=== PATIENT | male | born 1955 | race Caucasian/White ===

== ENCOUNTER 2017-12-16 10:59 | Inpatient (IN) | payer OTHER ==
--- NOTE | 2017-12-16 09:22 | GHP ---
DATE OF ADMISSION: 12/16/2017 DATE OF SURGERY: 12/16/2017. CHIEF COMPLAINT: Right ankle, left knee. HISTORY OF PRESENT ILLNESS: Patient is a 62-year-old who sustained a fall on stairs resulting in lef t knee and right ankle pain. PAST MEDICAL HISTORY: Positive for diabetes, hyper cholesterol, hypertension, cardiac history. MEDICATIONS: Include amlodipine, Aspir-Low, atorvastatin, glipizide, irbesartan, metformin, Pradaxa, and Toprol XL. SOCIAL HISTORY: Positive for being a former smoker. FAMILY HISTORY: Noncontributory. PHYSICAL EXAM: GENERAL APPEARANCE: The patient is alert and oriented x3 in mild distress secondary to his extremity pains. HEENT: Head is normocephalic. Pupils equal, round, reactive to light. Ext raocular eye movements intact. NECK: Supple. No JVD or lymphadenopathy. HEART: Regular rate and rhythm. ABDOMEN: Soft, nontender, nondistended. GENITAL, RECTAL AND BREAST: Deferred. EXTREMITIE S: On the left reveals palpable defect in the distal quad tendon with difficulty extending his knee. On the right he has tenderness along the lateral aspect of his ankle overlying his lateral malleolu s. ASSESSMENT: 1. Left quadriceps tendon tear. 2. Right lateral malleolus fracture. PLAN: The patient is going to undergo ORIF right lateral malleolus fracture and open repair left declan driceps tendon. /[id number]/MODL
[2017-12-16] MEDS ORDERED: ceFAZolin 2 GM/DEXTROSE 100 ML IV ONE (13:00)
[2017-12-16] MEDS ORDERED: LACTULOSE 20 GM/30 ML UDCUP PO PRN (13:01)
[2017-12-16] MEDS ORDERED: MAGNESIUM HYDROXIDE 30 ML UDCUP PO PRN (13:01)
[2017-12-16] MEDS ORDERED: BISACODYL 10 MG SUPP PR PRN (13:01)
[2017-12-16] MEDS ORDERED: PROMETHAZINE HCL 25 MG/ML INJ IVP PRN (13:01)
[2017-12-16] MEDS ORDERED: morphINE PCA 30 MG/30 ML PCA IV PRN (13:01)
[2017-12-16] MEDS ORDERED: NALOXONE HCL 0.4 MG/ML INJ IVP PRN ×2 (13:01→15:36)
[2017-12-16] MEDS ORDERED: ONDANSETRON 4 MG/2 ML VIAL IVP PRN (13:01)
[2017-12-16] MEDS ORDERED: D5W 1/2 NS W/ 20 KCl/L 1,000 ML IV SCH (13:15)
[2017-12-16] MEDS ORDERED: LR 1,000 ML IV ONE (13:18)
[2017-12-16] MEDS ORDERED: LIDOCAINE 1% 2 ML INJ ID PRN (13:18)
--- NOTE | 2017-12-16 13:18 | PDANEPAE ---
ANE Past Medical History - Cardiovascular History Hx Hypertension: Yes Hx Arrhythmias: Yes Hx Chest Pain: No Hx Coronary Artery / Peripheral Vascular Disease: No Hx CHF / Valvular Disease: No Hx Palpitations: Yes Cardiovascular History Comment: Hx of Afib - Pulmonary History Hx COPD: No Hx Asthma/Reactive Airway Disease: No Hx Recent Upper Respiratory Infection: No Hx Oxygen in Use at Home: Yes O2 in Use at Home (L/minute): Pt supposed to use w/Cpap Hx Sleep Apnea: Yes Sleep Apnea Screening Result - Last Documented: Positive Pulmonary History Comment: Does not use O2 and is not sure how many liters he's supposed to use - Neurologic History Hx Cerebrovascular Accident: No Hx Seizures: No Hx Dementia: No - Endocrine History Hx Diabetes: Yes Hypothyroid: No Hyperthyroid: No Obesity: yes, severe - Renal History Hx Renal Disorders: No - Liver History Hx Hepatic Disorders: No - Neurological & Psychiatric Hx Hx Neurological and Psychiatric Disorders: No - Cancer History Hx Cancer: No - Congenital Disorder History Hx Congenital Disorders: No - GI History Hx Gastrointestinal Disorders: No - Other Health History Other Health History: wears glasses. glaucoma - Chronic Pain History Chronic Pain: No - Surgical History Prior Surgeries: rectal cyst removal. tonsillectomy ANE Review of Systems Review of Systems: - Exercise capacity METS (RN): 4 METS ANE Patient History - Allergies Allergies/Adverse Reactions: No Known Allergies Allergy (Verified 12/14/17 16:26) - Home Medications Home Medications: Aspirin [Aspirin 81mg (*)] 81 mg PO DAILY 02/19/14 [Last Taken Unknown] Atorvastatin Calcium [Lipitor 20 mg (*)] 20 mg PO DAILY 02/19/14 [Last Taken Unknown] Dabigatran Etexilate Mesyl [Pradaxa 150 MG (*)] 150 mg PO BID 02/19/14 [Last Taken 12/12/17 19:00] Dorzolamide HCl/Timolol Maleat [Dorzolamide-Timolol Eye Drops] 1 ml EACHEYE BID 02/19/14 [Last Taken Unknown] Metformin HCl [Metformin 1000 mg] 1,000 mg PO BIDMEAL 02/19/14 [Last Taken Unknown] Metoprolol Succinate 50 mg PO BID 02/19/14 [Last Taken Unknown] Irbesartan/Hydrochlorothiazide [Irbesartan-Hctz 150-12.5 mg Tb] 2 each PO DAILY 12/13/17 [Last Taken Unknown] Latanoprostene Bunod [Vyzulta] 1 drop EACHEYE HS 12/13/17 [Last Taken Unknown] amLODIPine BESYLATE [Norvasc 2.5 mg (*)] 2.5 mg PO DAILY 12/13/17 [Last Taken Unknown] glipiZIDE [Glipizide] 5 mg PO DAILY 12/13/17 [Last Taken Unknown] - Smoking Hx Smoking Status: Former smoker - Family Anes Hx Family Hx Anesthesia Complications: none ANE Labs/Vital Signs - Vital Signs Height: 180.34 cm Weight: 136.078 kg ANE Physical Exam - ASA Status ASA Status: III ANE Anesthesia Plan Anesthesia Plan: general endotracheal anesthesia Total IV Anesthesia: No
--- NOTE | 2017-12-16 13:19 | POSTOPPROG ---
Post Op Note Date of Operation: 12/16/17 Surgeon: Cal Lucia Anesthesia: GET(General Endotracheal) Pre-op Diagnosis: R lat malleolus fx, L quad tendon rupture Post-op Diagnosis: same Procedure: ORIF R lat malleolus, L quad tendon repair Inf/Abcess present in the surg proc area at time of surgery?: No EBL: 50-100
[2017-12-16] MEDS ORDERED: MIDAZOLAM 2 MG/2 ML VIAL ONE (13:28)
[2017-12-16] MEDS ORDERED: PROPOFOL 200 MG/20 ML VIAL ONE (13:36)
[2017-12-16] MEDS ORDERED: KETOROLAC 30 MG/1 ML SDV ONE (13:36)
[2017-12-16] MEDS ORDERED: fentaNYL 250 MCG/5 ML INJ ONE (13:36)
[2017-12-16] MEDS ORDERED: LIDOCAINE 2% 100 MG/5 ML SYR ONE (13:36)
[2017-12-16] MEDS ORDERED: DEXAMETHASONE 4 MG/ML VIAL ONE (13:36)
[2017-12-16] MEDS ORDERED: ONDANSETRON 4 MG/2 ML VIAL ONE (13:36)
--- NOTE | 2017-12-16 14:31 | PDANEPAE ---
ANE History of Present Illness R quadriceps tendon rupture and right ankle fracture, here for tendon repair and ORIF ANE Past Medical History - Cardiovascular History Hx Hypertension: Yes Hx Arrhythmias: Yes Hx Chest Pain: No Hx Coronary Artery / Peripheral Vascular Disease: No Hx CHF / Valvular Disease: No Hx Palpitations: Yes Cardiovascular History Comment: Hx of Afib - Pulmonary History Hx COPD: No Hx Asthma/Reactive Airway Disease: No Hx Recent Upper Respiratory Infection: No Hx Oxygen in Use at Home: Yes O2 in Use at Home (L/minute): Pt supposed to use w/Cpap Hx Sleep Apnea: Yes Sleep Apnea Screening Result - Last Documented: Positive Pulmonary History Comment: Does not use O2 and is not sure how many liters he's supposed to use - Neurologic History Hx Cerebrovascular Accident: No Hx Seizures: No Hx Dementia: No - Endocrine History Hx Diabetes: Yes Hypothyroid: No Hyperthyroid: No Obesity: yes, severe - Renal History Hx Renal Disorders: No - Liver History Hx Hepatic Disorders: No - Neurological & Psychiatric Hx Hx Neurological and Psychiatric Disorders: No - Cancer History Hx Cancer: No - Congenital Disorder History Hx Congenital Disorders: No - GI History Hx Gastrointestinal Disorders: No - Other Health History Other Health History: wears glasses. glaucoma - Chronic Pain History Chronic Pain: No - Surgical History Prior Surgeries: rectal cyst removal. tonsillectomy ANE Review of Systems Review of Systems: - Exercise capacity METS (RN): 4 METS ANE Patient History - Allergies Allergies/Adverse Reactions: No Known Allergies Allergy (Verified 12/14/17 16:26) - Home Medications Home Medications: Aspirin [Aspirin 81mg (*)] 81 mg PO DAILY 02/19/14 [Last Taken Unknown] Atorvastatin Calcium [Lipitor 20 mg (*)] 20 mg PO DAILY 02/19/14 [Last Taken Unknown] Dabigatran Etexilate Mesyl [Pradaxa 150 MG (*)] 150 mg PO BID 02/19/14 [Last Taken 12/12/17 19:00] Dorzolamide HCl/Timolol Maleat [Dorzolamide-Timolol Eye Drops] 1 ml EACHEYE BID 02/19/14 [Last Taken Unknown] Metformin HCl [Metformin 1000 mg] 1,000 mg PO BIDMEAL 02/19/14 [Last Taken Unknown] Metoprolol Succinate 50 mg PO BID 02/19/14 [Last Taken Unknown] Irbesartan/Hydrochlorothiazide [Irbesartan-Hctz 150-12.5 mg Tb] 2 each PO DAILY 12/13/17 [Last Taken Unknown] Latanoprostene Bunod [Vyzulta] 1 drop EACHEYE HS 12/13/17 [Last Taken Unknown] amLODIPine BESYLATE [Norvasc 2.5 mg (*)] 2.5 mg PO DAILY 12/13/17 [Last Taken Unknown] glipiZIDE [Glipizide] 5 mg PO DAILY 12/13/17 [Last Taken Unknown] - NPO status NPO Since - Liquids (Date): 12/15/17 NPO Since - Liquids (Time): 22:00 NPO Since - Solids (Date): 12/15/17 NPO Since - Solids (Time): 20:00 - Smoking Hx Smoking Status: Former smoker - Family Anes Hx Family Hx Anesthesia Complications: none ANE Labs/Vital Signs - Vital Signs Blood Pressure: 169/97 Heart Rate: 110 Respiratory Rate: 20 O2 Sat (%): 96 Height: 180.34 cm Weight: 136.078 kg ANE Physical Exam - Airway Neck exam: increased neck circumference, short neck Mallampati Score: Class 4 Mouth exam: normal dental/mouth exam - Pulmonary Pulmonary: no respiratory distress - Cardiovascular Cardiovascular: irregularly irregular - ASA Status ASA Status: III ANE Anesthesia Plan Anesthesia Plan: general endotracheal anesthesia
[2017-12-16] MEDS ORDERED: HYDROmorphONE/DILAUDID 2 MG/ML INJ ONE ×2 (14:46→15:40)
[2017-12-16] MEDS ORDERED: ROCURONIUM 50 MG/5 ML VIAL ONE (14:46)
[2017-12-16] MEDS ORDERED: SUGAMMADEX SODIUM 200 MG/2 ML VIAL IVP ONE (14:46)
[2017-12-16] MEDS ORDERED: GLYCOPYRROLATE 0.2 MG/1 ML VIAL ONE (14:46)
[2017-12-16] MEDS ORDERED: PHENYLEPHRINE 0.5% NASAL 15 ML SPRAY ONE (14:46)
--- NOTE | 2017-12-16 15:26 | PDMN ---
Medical Necessity Medical necessity: Pt meets inpt criteria per MD order and MCG S-100, Ankle Fracture, Closed, Open Reduction, Internal Fixation (ORIF). 62 y/o who sustained fall on stairs resulting in L quadriceps tendon tare and R lateral malleolus fracture, admitted for surg intervention for both injuries: ORIF R lat malleolus and open repair of L quadriceps tendon. PMH includes diabetes, HTN , cardiac hx. Anticipate>2MN for likely ext recovery given two injuries/ surgeries.
[2017-12-16] MEDS ORDERED: LR 500 ML IV PRN (15:36)
[2017-12-16] MEDS ORDERED: LABETALOL HCL 5 MG/ML 20 ML MDV IVP PRN (15:36)
[2017-12-16] MEDS ORDERED: ALBUTEROL 3 ML DEYVIAL IH PRN (15:36)
[2017-12-16] MEDS ORDERED: fentaNYL 100 MCG/2 ML INJ ONE (15:40)
[2017-12-16] MEDS: fentaNYL 100 MCG/2 ML INJ IVP PRN ×2 (15:46→16:05)
[2017-12-16] MEDS: HYDROmorphONE/DILAUDID 2 MG/ML INJ IVP PRN ×3 (15:47→16:33)
--- NOTE | 2017-12-16 16:15 | POSTANESTH ---
Post Anesthetic Evaluation Cardiovascular Status: Normal, Stable Respiratory Status: Normal, Stable Level of Consciousness/Mental Status: Can Participate in Eval Pain Control: Adequate, Prn Tx Ordered Nausea/Vomiting Control: Adequate, Prn Tx Ordered Complications Possibly Related to Anesthesia: None Noted (Still in Afib, rate controlled. MS at baseline. Met all criteria for DC to floor)
[2017-12-16] MEDS: oxyCODONE IR 5 MG TAB PO PRN (17:04)
[2017-12-16] MEDS ORDERED: NON-FORMULARY NEW DRUG (Metformin Hcl [Metformin 1000 Mg] 1,000 MG) PO SCH (18:00)
[2017-12-16] MEDS: metFORMIN HCL 500 MG TAB PO SCH (18:23)
[2017-12-16] MEDS: DABIGATRAN ETEXILATE MESYL 150 MG CAP PO SCH (20:01)
[2017-12-16] MEDS: SENNOSIDES/DOCUSATE SODIUM TAB PO SCH (20:01)
[2017-12-16] MEDS: METOPROLOL SUCCINATE XR 50 MG TAB PO SCH (20:01)
[2017-12-16] MEDS: DORZOLAMIDE/TIMOLOL 10 ML OPHT.BTL EACHEYE SCH (20:05)
[2017-12-16] MEDS: ceFAZolin 2 GM/DEXTROSE 100 ML IV SCH (22:56)
[2017-12-17] MEDS: oxyCODONE IR 5 MG TAB PO PRN ×4 (03:10→20:32)
[2017-12-17] MEDS: ceFAZolin 2 GM/DEXTROSE 100 ML IV SCH (05:14)
[2017-12-17] MEDS: HYDROCHLOROTHIAZIDE 25 MG TAB PO SCH (07:46)
[2017-12-17] MEDS: metFORMIN HCL 500 MG TAB PO SCH ×2 (07:46→18:16)
[2017-12-17] MEDS: ASPIRIN 81 MG CHEWABLE TAB PO SCH (07:47)
[2017-12-17] MEDS: IRBESARTAN 150 MG TAB PO SCH (07:47)
[2017-12-17] MEDS: DABIGATRAN ETEXILATE MESYL 150 MG CAP PO SCH ×2 (07:48→20:17)
[2017-12-17] MEDS: SENNOSIDES/DOCUSATE SODIUM TAB PO SCH ×2 (07:49→20:19)
[2017-12-17] MEDS: METOPROLOL SUCCINATE XR 50 MG TAB PO SCH ×2 (07:50→20:19)
[2017-12-17] MEDS: glipiZIDE 5 MG TAB PO SCH (07:50)
[2017-12-17] MEDS: ATORVASTATIN CALCIUM 20 MG TAB PO SCH (07:51)
[2017-12-17] MEDS: POLYETHYLENE GLYCOL 3350 17 GM PKT PO PRN (07:51)
[2017-12-17] MEDS: DORZOLAMIDE/TIMOLOL 10 ML OPHT.BTL EACHEYE SCH ×2 (11:54→20:17)
--- NOTE | 2017-12-17 12:11 | ASMTCMCOM ---
CM Note CM Note Notes: Chart reviewed. 62 year old male normally lives independent. S/P fall and resultant fracture of right anle and torn left quadriceps muscle. Underwent surgical repair. PT and OT pending. Needs to be determined. CM to follow. Plan: TBD Date Signed: 12/17/2017 12:11 PM Electronically Signed By:Carmen Ramos RN
[2017-12-17] MEDS: DIAZEPAM 5 MG TAB PO PRN ×2 (12:53→20:32)
--- NOTE | 2017-12-17 14:16 | SOAPPROG ---
SOAP Progress Note Assessment/Plan: Assessment: L quad tendon rupture (s/p repair) R lat malleolus fx (s/p ORIF) In chair Pain tolerable on po Brittney diet + U/O L knee dressing intact, No D/C Distal NVI R ankle dressing intact, No D/C Toes with good cap refill, + sensation Plan: OOB, PT SNF transfer pending d/t BL injuries and inability to manage at home 12/17/17 14:13 Objective: Vital Signs Temp Pulse Resp BP Pulse Ox 36.8 C 97 16 111/71 92 12/17/17 07:35 12/17/17 12:57 12/17/17 12:57 12/17/17 12:57 12/17/17 12:57 12/16/17 12/17/17 12/18/17 05:59 05:59 05:59 Intake Total 825 Output Total 575 Balance 250 ICD10 Worksheet Patient Problems: Problems Problem Status Onset Quadriceps tendon rupture Acute - ICD10 Problem Qualifiers (1) Quadriceps tendon rupture
--- NOTE | 2017-12-17 15:23 | ASMTCMCOM ---
CM Note CM Note Notes: Per PT and OT as well as physician, rehab recommended at discharge. to look at [facility] as well as [place]. Referrals via allscripts. plan: To [facility] when medically cleared for discharge. Date Signed: 12/17/2017 03:22 PM Electronically Signed By:Carmen Ramos RN
[2017-12-18] MEDS: oxyCODONE IR 5 MG TAB PO PRN ×5 (01:31→21:20)
[2017-12-18] MEDS: SENNOSIDES/DOCUSATE SODIUM TAB PO SCH ×2 (08:30→21:20)
[2017-12-18] MEDS: DIAZEPAM 5 MG TAB PO PRN ×2 (08:30→14:54)
[2017-12-18] MEDS: metFORMIN HCL 500 MG TAB PO SCH ×2 (08:30→17:00)
[2017-12-18] MEDS: ATORVASTATIN CALCIUM 20 MG TAB PO SCH (08:31)
[2017-12-18] MEDS: METOPROLOL SUCCINATE XR 50 MG TAB PO SCH ×2 (08:31→21:18)
[2017-12-18] MEDS: IRBESARTAN 150 MG TAB PO SCH (08:31)
[2017-12-18] MEDS: DABIGATRAN ETEXILATE MESYL 150 MG CAP PO SCH ×2 (08:32→21:18)
[2017-12-18] MEDS: DORZOLAMIDE/TIMOLOL 10 ML OPHT.BTL EACHEYE SCH ×2 (08:32→21:23)
[2017-12-18] MEDS: HYDROCHLOROTHIAZIDE 25 MG TAB PO SCH (08:32)
[2017-12-18] MEDS: glipiZIDE 5 MG TAB PO SCH (08:32)
[2017-12-18] MEDS: ASPIRIN 81 MG CHEWABLE TAB PO SCH (08:32)
--- NOTE | 2017-12-18 11:47 | SOAPPROG ---
SOAP Progress Note Assessment/Plan: Assessment: L quad tendon rupture (s/p repair) R lat malleolus fx (s/p ORIF) In chair Pain tolerable on po Brittney diet + U/O L knee dressing intact, No D/C Distal NVI R ankle dressing intact, No D/C Toes with good cap refill, + sensation Plan: OOB, PT SNF transfer pending d/t BL injuries and inability to manage at home 12/17/17 14:13 12/18/17 11:45 Up in chair for extended period yesterday with some increase in pain Comfortable now Dressings intact, no D/CNV Unchanged Con't OOB/PT SNF possible tomorrow Objective: Vital Signs Temp Pulse Resp BP Pulse Ox 36.8 C 106 H 18 91/63 L 97 12/18/17 11:26 12/18/17 11:26 12/18/17 11:26 12/18/17 11:26 12/18/17 11:26 12/17/17 12/18/17 12/19/17 05:59 05:59 05:59 Intake Total 825 650 Output Total 571 9600 Balance 250 -900 ICD10 Worksheet Patient Problems: Problems Problem Status Onset Quadriceps tendon rupture Acute - ICD10 Problem Qualifiers (1) Quadriceps tendon rupture
--- NOTE | 2017-12-18 11:50 | PDIAF ---
- Diagnosis Code Status: Full Code - Medication Management Discharge Medications: Medications to Continue on Transfer Aspirin [Aspirin 81mg (*)] 81 mg PO DAILY 02/19/14 [Last Taken Unknown] Atorvastatin Calcium [Lipitor 20 mg (*)] 20 mg PO DAILY 02/19/14 [Last Taken Unknown] Dabigatran Etexilate Mesyl [Pradaxa 150 MG (*)] 150 mg PO BID 02/19/14 [Last Taken 12/12/17 19:00] Dorzolamide HCl/Timolol Maleat [Dorzolamide-Timolol Eye Drops] 1 ml EACHEYE BID 02/19/14 [Last Taken Unknown] Metformin HCl [Metformin 1000 mg] 1,000 mg PO BIDMEAL 02/19/14 [Last Taken Unknown] Metoprolol Succinate 50 mg PO BID 02/19/14 [Last Taken Unknown] Irbesartan/Hydrochlorothiazide [Irbesartan-Hctz 150-12.5 mg Tb] 2 each PO DAILY 12/13/17 [Last Taken Unknown] Latanoprostene Bunod [Vyzulta] 1 drop EACHEYE HS 12/13/17 [Last Taken Unknown] amLODIPine BESYLATE [Norvasc 2.5 mg (*)] 2.5 mg PO DAILY 12/13/17 [Last Taken Unknown] glipiZIDE [Glipizide] 5 mg PO DAILY 12/13/17 [Last Taken Unknown] Additional Medication Instructions: F/U Dr. Lucia Tuesday12/26/17 or Tue Discharge Medications: Refer to the Discharge Home Medication list for PRN reason. - Orders Services needed: Physical Therapy, Occupational Therapy Diet Recommendation: no restrictions on diet Wound Care Instructions: Keep dressings clean, dry, intact Sutures/Decorah Site: L knee, right ankle Activity/Weight Bearing Restrictions: WBAT L leg in knee immobilizer, Touch down WB on Right in boot - Follow Up Care Current Providers and Referrals: Anastasiya Jara MD [Primary Care Provider] - Cal Lucia MD [Medical Doctor] -
--- NOTE | 2017-12-18 15:03 | ASMTCMCOM ---
CM Note CM Note Notes: Patient's interested in patient going to [facility]. Faxed [facility] updated pt info incl-therapy evals. Date Signed: 12/18/2017 03:03 PM Electronically Signed By:Vita Ospina LCSW
[2017-12-18] MEDS: FAMOTIDINE 20 MG TAB PO SCH (21:20)
[2017-12-19] MEDS: oxyCODONE IR 5 MG TAB PO PRN ×3 (05:52→14:57)
--- NOTE | 2017-12-19 06:00 | SOAPPROG ---
SOAP Progress Note Assessment/Plan: Assessment: L quad tendon rupture (s/p repair) R lat malleolus fx (s/p ORIF) In chair Pain tolerable on po Brittney diet + U/O L knee dressing intact, No D/C Distal NVI R ankle dressing intact, No D/C Toes with good cap refill, + sensation Plan: OOB, PT SNF transfer pending d/t BL injuries and inability to manage at home 12/17/17 14:13 12/18/17 11:45 Up in chair for extended period yesterday with some increase in pain Comfortable now Dressings intact, no D/CNV Unchanged Con't OOB/PT SNF possible tomorrow 12/19/17 05:55 Pain con't to be tolerable Gradual progression with PT Dressings intact NV Unchanged Plan: Probable SNF placement today Objective: Vital Signs Temp Pulse Resp BP Pulse Ox 36.5 C 103 H 16 134/90 H 95 12/19/17 04:00 12/19/17 04:00 12/19/17 04:00 12/19/17 04:00 12/19/17 04:00 12/17/17 12/18/17 12/19/17 05:59 05:59 05:59 Intake Total 824 653 900 Output Total 490 5775 2524 Balance 743 -563 -103 ICD10 Worksheet Patient Problems: Problems Problem Status Onset Quadriceps tendon rupture Acute - ICD10 Problem Qualifiers (1) Quadriceps tendon rupture
[2017-12-19] MEDS: POLYETHYLENE GLYCOL 3350 17 GM PKT PO PRN (08:41)
[2017-12-19] MEDS: glipiZIDE 5 MG TAB PO SCH (08:42)
[2017-12-19] MEDS: DABIGATRAN ETEXILATE MESYL 150 MG CAP PO SCH (08:42)
[2017-12-19] MEDS: ATORVASTATIN CALCIUM 20 MG TAB PO SCH (08:42)
[2017-12-19] MEDS: SENNOSIDES/DOCUSATE SODIUM TAB PO SCH (08:42)
[2017-12-19] MEDS: ASPIRIN 81 MG CHEWABLE TAB PO SCH (08:42)
[2017-12-19] MEDS: metFORMIN HCL 500 MG TAB PO SCH (08:42)
[2017-12-19] MEDS: DORZOLAMIDE/TIMOLOL 10 ML OPHT.BTL EACHEYE SCH (08:43)
[2017-12-19] MEDS: FAMOTIDINE 20 MG TAB PO SCH (08:43)
[2017-12-19] MEDS: IRBESARTAN 150 MG TAB PO SCH (10:21)
[2017-12-19] MEDS: METOPROLOL SUCCINATE XR 50 MG TAB PO SCH (10:21)
[2017-12-19] MEDS: HYDROCHLOROTHIAZIDE 25 MG TAB PO SCH (10:21)
--- NOTE | 2017-12-19 10:53 | GOP ---
DATE OF OPERATION: 12/16/2017 SURGEON: Cal Lucia MD ANESTHESIA: General. PREOPERATIVE DIAGNOSIS: 1. Left quadriceps tendon rupture. 2. Right lateral malleolus fracture. POSTOPERATIVE DIAGNOSIS: 1. Left quadriceps tendon rupture. 2. Right lateral malleolus fracture. PROCEDURE PERFORMED: 1. Open repair left quadriceps tendon rupture. 2. Open reduction, internal fixation right lateral malleolus fracture. FINDINGS: ESTIMATED BLOOD LOSS: Minimal. INDICATIONS: The patient is a 62-year-old who sustained a fall resulting in bilateral lower extremit y injuries. Based on the nature of the injury, it was recommended that operative treatment consistin g of open repair of his quad tendon rupture and open reduction, internal fixation of his lateral mall eolus fracture, be pursued. The patient acknowledged he understood the potential risks of the operat ion including, but not limited to bleeding, infection, neurovascular damage, limb loss, limited limb function, malunion, nonunion, need for hardware removal, re-rupture of the tendon or tendon dysfuncti on despite repair and anesthetic risks. He acknowledged he understood the potential risks, planned p rocedure, and postoperative plan well, and had all questions answered prior to surgery. He gave cons ent to the operative procedure. DESCRIPTION OF PROCEDURE: Patient brought to the operating room after IV antibiotics were administer ed. He was placed in a supine position where general anesthetic was administered. Attention was ini tially directed toward the left. A tourniquet was placed on the left thigh, and left lower extremity was prepped and draped in standard sterile fashion. After marking the incision with Tito wrap exsang uination, tourniquet was inflated to 250. Longitudinal incision was made along the anterior aspect o f the knee, extending from the proximal pole of the patella proximally. Skin and subcutaneous tissue were sharply incised. The retinaculum overlying the patellar tendon was mostly disrupted, but was o pened some to allow for adequate access to the tendon. As anticipated, complete disruption near the patellar insertion was noted with typical "mop handle ends." Two 2.9 mm JuggerKnot hole suture anchors were placed in the patella each gaining excellent purchase. The double stranded suture ends were then placed through the patellar tendon in 2 rows utilizing a Krackow type stitch. The suture ends were tightened. The knee was bent to 90 degrees and the repair was found to be solid with no evidence of suture or anchor pullout. Attention was directed toward closure. The retinaculum was closed with 2-0 Vicryl suture in interrup thuy fashion. Subcutaneous tissue closed with 3-0 Vicryl suture in interrupted fashion. Skin closed with skin arnol. The wounds were dressed with sterile Adaptic, 4 x 4, Kerlix and an Tito wrap. Charlie ping the back table sterile the right lower extremity was then re-prepped and draped in standard ster ile fashion after bumping up the right hip. A calf tourniquet had been placed prior to redraping. A fter marking the incision Tito wrap exsanguination, tourniquet was inflated to 250. A longitudinal incision was made along the posterior border of the distal fibula. Skin and subcutane ous tissue were sharply incised. Sharp dissection was carried anterior to the peroneal tendons expos ing the posterolateral border of the fibula. Limited periosteal reflection was performed. A dental pick was utilized to free out interpose fibrous tissue at the fracture site. Based on the nature of the fracture pattern, a posterior "antiglide" plating was performed. A 6 hole, 1/3 tubular plate was malleted flat at its distal-most aspect. Just proximal to the fracture, a 3.5 mm bicorti lynne screw was placed in a posterior to anterior direction through the plate. As the screw was tighte stiven, the fracture reduction was fine-tuned into an anatomic position with a dental pick. With the fr acture in the anatomically reduced position, a 2.7 mm cortical screw was placed in a posterior to ant erior direction through the plate across the fracture. A supplemental 3.5 mm bicortical screw was pl aced in the most proximal hole in the plate. Fluoroscopic views confirmed anatomic reduction and favorable hardware placement. The fascia overlyi ng the peroneal tendon was closed with 2-0 Vicryl suture in interrupted fashion, subcutaneous tissue closed with 3-0 Vicryl suture in interrupted fashion, skin closed with 4-0 nylon interrupted sutures. 0.5% Marcaine without epinephrine was injected in the wound sites. The wounds were dressed with st erile Adaptic, 4 x 4, Kerlix, and Tito wrap. The patient was placed in a fracture boot on the right. The patient tolerated the procedure well, was taken to the recovery room, extubated in stable condit ion postoperatively. All sponge, needle, and instrument counts were reported as being correct. DRAINS: None. COMPLICATIONS: None. PLAN: The patient will be admitted for medical management and rehab efforts. He would be weightbear ing as tolerated in a knee immobilizer on the left and touchdown weightbearing on the right. /[id number]/MODL
[2017-12-19 12:02] VITALS: BP 113/80
--- NOTE | 2017-12-19 13:57 | ASMTDCNOTE ---
Case Management Discharge Discharge Order Complete? Answers: Yes Patient to Obtain Answers: Other Notes: [facility] Transportation Arranged Answers: [facility] will Pick (Date 12/19/2017 03:30 PM & Time) Case Management Transport Answers: Yes Form Complete Faxed Final Orders Answers: Yes Family Notified Answers: Yes Discharge Comments Notes: Per insurance requirements, patient not able to go to [facility]. He selected [facility], and they accepted. Johanna from arranged transport. BETHEL Schrader to call report. Date Signed: 12/19/2017 01:56 PM Electronically Signed By:Mylene Henning RN
--- NOTE | 2017-12-20 10:01 | ASDISCHSUM ---
Discharge Information Plan Status:SNF Medically Cleared to Leave: Discharge Date:12/19/2017 04:09 PM CM D/C Disposition:[facility] Facility ADT D/C Disposition:[facility] Facility Projected Discharge Date:12/19/2017 11:00 AM Transportation at D/C: Discharge Delay Reason: Follow-Up Date:12/19/2017 11:00 AM Discharge Slot: Final Diagnosis:L quad tendon rupture, R lat malleolus fx Placement Information Referral Type:*Long-Term/SNF Referral ID:[facility]-[id number] Provider Name:Erica Verdin Address 1:[address] Phone Number: Address 2: Fax Number: City:[place] Selection Factors: State:[place] Patient Contact Information Contact Name:DANI Relationship: Address:[address] City:[place] Alternate Phone: State/Zip Code:[place] [address] Email: Financial Information Financial Class:[employer] Primary Plan Desc:TEMI CASIANO Primary Plan Number:[id number] Secondary Plan Desc: Secondary Plan Number: Assessment Information [facility] CM Progress Note CM Note CM Note Notes: Chart reviewed. 62 year old male normally lives independent. S/P fall and resultant fracture of right anle and torn left quadriceps muscle. Underwent surgical repair. PT and OT pending. Needs to be determined. CM to follow. Plan: TBD Date Signed: 12/17/2017 12:11 PM Electronically Signed By:Carmen Ramos RN [facility] CM Progress Note CM Note CM Note Notes: Per PT and OT as well as physician, rehab recommended at discharge. to look at [facility] as well as [place]. Referrals via allscripts. plan: To [facility] when medically cleared for discharge. Date Signed: 12/17/2017 03:22 PM Electronically Signed By:Carmen Ramos RN [facility] CM Progress Note CM Note CM Note Notes: Patient's interested in patient going to [facility]. Faxed [facility] updated pt info incl-therapy evals. Date Signed: 12/18/2017 03:03 PM Electronically Signed By:Vita Ospina LCSW Case Management Discharge Plan Note Case Management Discharge Discharge Order Complete? Answers: Yes Patient to Obtain Answers: Other Notes: [facility] Transportation Arranged Answers: [facility] will Pick (Date 12/19/2017 03:30 PM & Time) Case Management Transport Answers: Yes Form Complete Faxed Final Orders Answers: Yes Family Notified Answers: Yes Discharge Comments Notes: Per insurance requirements, patient not able to go to [facility]. He selected [facility], and they accepted. Johanna from arranged transport. BETHEL Schrader to call report. Date Signed: 12/19/2017 01:56 PM Electronically Signed By:Mylene Henning RN Intervention Information
== END 2017-12-19 16:09 | DRG 493 ==
LOC: F3N 12:58
PROVIDERS: ADMIT Orthopaedic Surgery Foot and Ankle Surgery; ATTEND Orthopaedic Surgery Foot and Ankle Surgery
PROC: 0LQK0ZZ Repair Left Hip Tendon, Open Approach (ICD-10-PCS; principal; 2017-12-16 14:45)
PROC: 0QSJ04Z Reposition Right Fibula with Internal Fixation Device, Open Approach (ICD-10-PCS; principal; 2017-12-16 14:45)
DX: S82.61XA Displaced fracture of lateral malleolus of right fibula, initial encounter for closed fracture (principal); Z68.41 Body mass index [BMI] 40.0-44.9, adult; S76.012A Strain of muscle, fascia and tendon of left hip, initial encounter; W10.8XXA Fall (on) (from) other stairs and steps, initial encounter; I48.91 Unspecified atrial fibrillation; I10 Essential (primary) hypertension; E11.9 Type 2 diabetes mellitus without complications; E78.5 Hyperlipidemia, unspecified; G47.33 Obstructive sleep apnea (adult) (pediatric)
CPT/HCPCS: 97116-GP; 97162-GP; 97166-GO; 97530-GP; 97535-GO; C1713; J0690; J1100; J1170; J1885; J2001; J2250; J2405; J2704; J3010

== ENCOUNTER 2018-07-16 15:14 | Inpatient (IN) | payer OTHER ==
--- NOTE | 2018-07-16 15:42 | EDPHY ---
H & P Stated Complaint: [facility] fall, R knee injury Time Seen by Provider: 07/16/18 15:15 HPI/ROS: CHIEF COMPLAINT: Right knee pain after fall HISTORY OF PRESENT ILLNESS: This is a 62-year-old male who suffered a right lateral malleolus fracture and a left quadriceps tendon rupture after a fall in November of 2017. Both of these were repaired by Dr. Lucia. The patient then sent bent several weeks in a rehab facility. He is now able to walk independently except for long distances, for which she uses a cane. He comes in by ambulance today after falling in his office. He is not certain what happened, does not recall any preceding lightheadedness, chest pain, or other problems. He states that he merely turned and then found himself on the floor. He landed on his right leg, primarily on the lateral knee. He very quickly developed swelling of this knee. He has pain of the distal right thigh. He denies other injuries. He did not strike his head. REVIEW OF SYSTEMS: A ten system review of systems was performed and is negative with the exception of the items mentioned in the HPI. Past medical history: 1. Atrial fibrillation on Pradaxa 2. Hypertension 3. NIDDM 4. Hyperlipidemia 5. Glaucoma 6. 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 He lives with his in [place]. He does not use tobacco products. General Appearance: Alert. Vital signs reviewed. Initial blood pressure 168/ 112, heart rate 115. Head: Normocephalic atraumatic. Eyes: Pupils equal and round, no conjunctival injection, no discharge. Anicteric. Neck: Nontender to palpation over the cervical spine in the midline. Respiratory: Lungs are clear to auscultation; no wheezes, rales, or rhonchi. Cardiovascular: Regular rate and rhythm; no murmur, rub, or gallop. Gastrointestinal: Abdomen is soft and nontender. Skin: Warm and dry, no rashes on exposed skin, normal color. Back: Nontender to palpation over the thoracolumbar spine. No CVAT. Extremities: Right knee suprapatellar effusion. There is a small abrasion on the lateral right knee. He is able to flex his right knee approximately 30 degrees. He is having difficulty lifting his right foot off of the bed. Neurological: Alert and oriented. Moving all four extremities easily and equally. Sensation intact to light touch over both lower extremities. Pulses: 2+ right dorsalis pedis pulse. Psychiatric: Anxious and concerned about this injury. No agitation. - Personal History Current Tetanus/Diphtheria Vaccine: Yes Current Tetanus Diphtheria and Acellular Pertussis (TDAP): Yes - Medical/Surgical History Hx Asthma: No Hx Chronic Respiratory Disease: No Hx Diabetes: Yes Hx Cardiac Disease: Yes Hx Renal Disease: No Hx Cirrhosis: No Hx Alcoholism: No Hx HIV/AIDS: No Hx Splenectomy or Spleen Trauma: No Other PMH: HTN, AFIB, DMII, Sleep Apnea, L knee surgery - Social History Smoking Status: Never smoked Constitutional: Initial Vital Signs Temperature (C) 36.8 C 07/16/18 15:26 Heart Rate 115 H 07/16/18 15:26 Respiratory Rate 16 07/16/18 15:26 Blood Pressure 168/112 H 07/16/18 15:26 O2 Sat (%) 97 07/16/18 15:26 O2 Delivery Mode Room Air Allergies/Adverse Reactions: No Known Allergies Allergy (Verified 07/16/18 15:25) Home Medications: Medication Instructions Recorded Aspirin [Aspirin 81mg (*)] 81 mg PO DAILY 02/19/14 Atorvastatin Calcium [Lipitor 20 20 mg PO DAILY 02/19/14 mg (*)] Dabigatran Etexilate Mesyl 150 mg PO BID 02/19/14 [Pradaxa 150 MG (*)] Metformin HCl [Metformin 1000 mg] 1,000 mg PO BIDMEAL 02/19/14 Metoprolol Succinate 50 mg PO BID 02/19/14 Irbesartan/Hydrochlorothiazide 2 each PO DAILY 12/13/17 [Irbesartan-Hctz 150-12.5 mg Tb] Latanoprostene Bunod [Vyzulta] 1 drop EACHEYE HS 12/13/17 glipiZIDE [Glipizide] 5 mg PO DAILY 12/13/17 Unknown Eye Drop 1 drop EACHEYE BID 07/16/18 amLODIPine BESYLATE [Norvasc 5 mg 5 mg PO HS 07/16/18 (*)] Medical Decision Making - Diagnostics Imaging Results: Imaging Impressions Knee X-Ray 07/16/18 15:35 Impression: 1. Findings compatible with right quadriceps tendon tear as well as a avulsion fracture fragment superior to the patella and patella baja. ED Course/Re-evaluation: 62-year-old male with right knee injury. Four view knee x-ray is suggestive of right quadriceps tendon tear with patella baja and what appears to be an avulsion fracture. I have spoken with CHRIS Goss for Dr. Lucia. Dr. Lucia repaired the patient's quadriceps rupture and ankle fracture in 2018. It is recommended that the patient be placed in a straight leg immobilizer and crutch walk. Dr. Lucia can see him in the office in the morning. Unfortunately, this patient was Unable to safely ambulate with an immobilizer and crutches. His left leg does not have the strength to fully support him. I spoke again with Dr. Lucia'sPA. It is agreed that the patient will be admitted to the hospital and operative planning will be carried out by the Orthopedics team. The patient is on Pradaxa. Hospitalist service will be overseeing the patient's care. Patient has been offered pain medication but per 1st to stick with Tylenol. Patient is noted to be hypertensive and mildly tachycardic. He has taken his antihypertensive medications this morning. He has been quite anxious. Differential Diagnosis: I considered a differential diagnosis that includes but is not limited to fracture, dislocation, tendon rupture, internal dislocation, and infection. - Data Points Medications Given: Amlodipine Besylate (Norvasc) 5 mg PO HS EDIS Stop: 01/12/19 20:59 Last Admin: 07/16/18 20:23 Dose: 5 mg Melatonin (Melatonin) 3 mg PO HS EDIS Stop: 01/12/19 20:59 Last Admin: 07/16/18 20:26 Dose: Not Given Metoprolol Succinate (Toprol Xl) 50 mg PO BID EDIS Stop: 01/12/19 20:59 Last Admin: 07/16/18 20:23 Dose: 50 mg Miscellaneous Medication (Latanoprostene Bunod [Vyzulta]) 1 drop EACHEYE HS EDIS Stop: 01/12/19 20:59 Last Admin: 07/16/18 20:25 Dose: Not Given Discontinued Medications Acetaminophen (Tylenol) 650 mg PO EDNOW ONE Stop: 07/16/18 16:48 Last Admin: 07/16/18 16:59 Dose: 650 mg Departure - Departure Disposition: [facility] Clinical Impression: Quadriceps tendon rupture Condition: Good
[2018-07-16] MEDS ORDERED: ACETAMINOPHEN 325 MG TAB PO ONE (16:47)
[2018-07-16] MEDS ORDERED: ZOLPIDEM TARTRATE 5 MG TAB PO PRN (17:51)
[2018-07-16] MEDS ORDERED: ONDANSETRON 4 MG/2 ML VIAL IVP PRN (17:51)
--- NOTE | 2018-07-16 19:00 | PDGENHP ---
History and Physical History and Physical: CC: Right knee pain after a fall HISTORY: This patient, who has a weak left leg after an injury in November, was turning on his feet at his office today when his left leg gave out causing him to fall and land on his right knee. He has marked pain with any movement of the right knee or attempt to stand on it since then. He has no other pain and does not feel he injured himself in any other way. He called for paramedics who transported him here to the ER. Here on x-ray there finding suggestive of at least partial tear of the quadriceps tendon from the patella with a small avulsion injury as well. Notably, in November he had a complete disruption of his left quadriceps tendon which required surgery and he is still trying to recover from that episode, still not able to walk up stairs a needed because of weakness in the leg. At that time he also had an ankle fracture and has some hardware in his right ankle from that episode. He states he has had no other symptoms of acute illness recently, but thinks he may have had some rapid atrial fibrillation briefly after his fall today. He does not have palpitations now. On questioning he does admit that he has some swelling in his ankles. States he has been working hard to trying rehabilitate his left leg after left use injury, and has lost over 20 lb during that time through diet efforts. He does have sleep apnea but has not been using his CPAP. ROS: A comprehensive 10 system review revealed no other significant findings PAST MEDICAL HISTORY: Left quadriceps tendon tear and right lateral malleolus fracture after a fall November 2017 AFib on chronic anticoagulation Pradaxa (no known history of heart failure - my review of cardiology clinic records here shows no history of edema but no visits since 2011 according to what's available in [place]) Diabetes Obstructive sleep apnea Morbid obesity Hypertension Hyperlipidemia Vitamin-D deficiency Glaucoma FAMILY MEDICAL HISTORY: Lung cancer Parkinson's disease Heart disease Hypertension Sleep apnea CLL SOCIAL HISTORY: Former smoker MEDICATIONS: The patients list has been reconciled by our clinical pharmacist in the EMR. I have reviewed the list and ordered appropriate medicines. PHYSICAL EXAMINATION: Vital Signs: Some hypertension initially 168/112 coming down spontaneously, initial heart rate 115 now down to the 90s spontaneously, normal respirations and temperature, no hypoxemia His pulse is irregular by my examination Server Developer: Has not been placed on monitor yet Examination: General: Obese man, lying on ER gurney, alert, oriented, good mentation, relaxed Skin: warm, dry, good color, no rash; there is chronic stasis pigmentation of both calves and ankles HEENT: normal Neck: Difficult assessment due to obesity but no JVD seen Resps: relaxed Lungs: Diminished but clear breath sounds Heart: irregular, no murmur, quiet heart tones Abdomen: soft, nondistended, nontender, +BS, no mass Upper Extremities: normal Lower Extremities: Right leg is in a knee immobilization brace, 1+ pitting edema at both ankles is present as well as chronic stasis pigmentation changes; no diabetic foot lesions; no apparent new injury to the right knee No Bleeding or bruising Neurologic: normal speech/language, normal riprap man IV site: looks normal LABORATORY DATA: I have ordered laboratory studies there pending at this time RADIOLOGY STUDIES: I reviewed x-rays from his right knee which shows a small avulsion from the right patella superiorly and displacement of the patella inferiorly with increased thickness of the quadriceps tendon suggesting possible disruption of the quadriceps tendon 12 LEAD EKG: Not done at this time ASSESSMENT: * Acute right knee injury with suspected quadriceps tendon rupture and a small avulsion from the superior patella * Persisting left quadriceps weakness after similar injury in the left knee in November; patient will be having significant difficulty with ambulation with both knees involved * Right-sided congestive heart failure is likely chronic but not at maximum degree of compensation with some edema present * Paroxysmal Atrial fibrillation, in AFib now, so far rate reasonably controlled once he is settled here in the ER, however may have had some rapid AFib at home today; is on Pradaxa at home * No sign of left heart failure by exam at this time, Unknown left heart function at this time with no recent echocardiogram * Sleep apnea, not using CPAP at home currently but has a device * Suspect may have obesity hypoventilation syndrome as well * Type 2 diabetes mellitus * Vitamin-D deficiency was noted on a prior outpatient blood test, appears he has not been treated for this at present * Hypertension, not controlled in the ER possibly due to pain and anxiety usually better controlled * Hyperlipidemia on treatment PLANS: * Inpatient admission as he will be likely requiring surgery tomorrow, and will unlikely be able to ambulate safely or sufficiently to go home * Some diuresis tonight in order to improve his volume status with likely surgery pending * At this time he does have a higher than average risk for surgery but his surgery anesthesia risk is very acceptable and I do not think we need to do further evaluations or medical treatments beyond the above to prepare for surgery * He is on Pradaxa and will need to come off of that for his surgery, last dose this morning * Will need DVT prophylaxis to start up in the postop setting * Have recommended that his bring his CPAP device in from home and that he use this postoperatively * Follow sugars closely here and treat as needed indicated, will hold his oral medicines tomorrow with likely surgery pending, may resume those after surgery or if surgery is not going to oak her * As he has some degree of heart failure, primarily right-sided, I recommended that he be referred to Dr. Lucian anna Ace for outpatient heart failure management; he should continue his weight loss efforts and consider resuming using his CPAP at home but may need other evaluations or medical therapy in the long run * I will recheck a vitamin D level at this time and if it is low would start replacement therapy; with an ankle fracture and now a patellar avulsion he should be considered for assessment of bone density in the outpatient setting as well * I reviewed with him the potential consequences of chronic volume overload in terms of stasis ulcers and other skin health particularly with his diabetes The patient and had many questions and I answered them all at the bedside today and reviewed all of the above issues in significant detail with them as well as outpatient follow-up I am recommending for these issues > 70 mins bedside today I have reviewed the patient's case in detail with Dr. Cristal Duvall I have reviewed the patient's past medical records as part of this assessment, including previous hospitalization records as well as outpatient clinic records
[2018-07-16 20:19] LABS: PLATELET COUNT 178 10^3/uL (150-400)
[2018-07-16] MEDS: amLODIPine BESYLATE 5 MG TAB PO SCH (20:23)
[2018-07-16] MEDS: METOPROLOL SUCCINATE XR 50 MG TAB PO SCH (20:23)
[2018-07-16] MEDS: Latanoprostene Bunod [Vyzulta] 1 DROP EACHEYE SCH (20:25)
[2018-07-16] MEDS: MELATONIN 3 MG TAB PO SCH (20:26)
[2018-07-16 20:36] LABS: INR 1.08 (0.83-1.16); PROTIME(PATIENT) 13.6 SEC (12.0-15.0)
[2018-07-16] MEDS ORDERED: oxyCODONE IR 5 MG TAB PO PRN (21:21)
[2018-07-17] MEDS: MELATONIN 3 MG TAB PO SCH ×2 (00:18→21:27)
[2018-07-17] MEDS: ACETAMINOPHEN 325 MG TAB PO PRN ×3 (00:20→23:10)
[2018-07-17] MEDS ORDERED: NS 1,000 ML IV SCH (06:00)
[2018-07-17] MEDS ORDERED: glipiZIDE 5 MG TAB PO SCH (09:00)
[2018-07-17] MEDS: ATORVASTATIN CALCIUM 20 MG TAB PO SCH (09:07)
[2018-07-17] MEDS: METOPROLOL SUCCINATE XR 50 MG TAB PO SCH ×2 (09:07→20:52)
[2018-07-17] MEDS: CHOLECALCIFEROL VIT D3 2,000 UNITS TAB/CAP PO SCH (09:07)
[2018-07-17] MEDS: CALCIUM CARBONATE 500 MG CHEWABLE TAB PO SCH ×2 (09:07→20:52)
--- NOTE | 2018-07-17 10:03 | ASMTCASEMG ---
Living Arrangements What is your living Answers: With Spouse arrangement? Who do you live with? Type Of Residence What kind of residence do Answers: House you live in? Discharge Plan Comments Coordination Status Comments Notes: Patient is a 62yo male who comes to [facility] as a result of an acute right knee injury which will require surgery. PT/OT evals have been ordered for the patient. D/C plan TBD. CM will follow. Date Signed: 07/17/2018 10:02 AM Electronically Signed By:Giana Haro LCSW
--- NOTE | 2018-07-17 15:22 | HOSPPROG ---
Hospitalist Progress Note Assessment/Plan: 62 year old male with pmh of left quadriceps rupture, here for left knee pain, concerning for right quad tear. Right knee pain- I reviewed the plain film which is concerning for a partial tear. I discussed the case his ortho surgeon who has graciously agreed to see the patient. No plan for surgery today. -Pain control -Ortho to see PAF- on pradaxa and asa. Hold for possible surgery in am. JAIME- CPAP DM- hold glucophage and sulfonylurea, and cover with SSI HTN- cont metoprolol, and norvasc, hold ARB/HCTZ perioperatively HLD- cont statin PPX- SCDs, heparin FLuids- PO Lytes- WNL Nutrition- carb control Dispo- inpatient for possible tendon rupture. Subjective: severe pain in right knee and leg. Objective: Vital Signs Temp Pulse Resp BP Pulse Ox 37.2 C 99 15 137/86 H 96 07/17/18 12:33 07/17/18 12:33 07/17/18 12:33 07/17/18 12:33 07/17/18 12:33 Laboratory Results 07/16/18 20:10 07/16/18 20:10 07/16/18 07/17/18 07/18/18 05:59 05:59 05:59 Intake Total 50 Output Total 950 500 Balance -900 -500 PT 13.6 SEC (12.0-15.0) 07/16/18 20:10 INR 1.08 (0.83-1.16) 07/16/18 20:10 - Physical Exam Constitutional: no apparent distress, appears nourished, not in pain Eyes: PERRL, anicteric sclera, EOMI Ears, Nose, Mouth, Throat: moist mucous membranes, hearing normal, ears appear normal, no oral mucosal ulcers Cardiovascular: regular rate and rhythym, no murmur, rub, or gallop Respiratory: no respiratory distress, no rales or rhonchi, clear to auscultation Gastrointestinal: normoactive bowel sounds, soft, non-tender abdomen, no palpable masses Genitourinary: no bladder fullness, no bladder tenderness, no renal bruits Skin: no rashes or abrasions, no fluctuance, no induration Musculoskeletal: full muscle strength, no muscle tenderness, normal joint ROM Neurologic: AAOx3, sensation intact bilaterally Psychiatric: interacting appropriately, not anxious, not encephalopathic, thought process linear Lymph, Heme, Immunologic: no cervical LAD, no supraclavicular LAD ICD10 Worksheet Patient Problems: Problems Problem Status Onset Quadriceps tendon rupture Acute
[2018-07-17] MEDS ORDERED: D50W 25 GM/50 ML SYR IVP PRN (15:28)
--- NOTE | 2018-07-17 15:49 | PDMN ---
Medical Necessity Medical necessity: [facility] Musculoskeletal disease/ sgy( pend) [id number] suture of quadriceps muscle rupture, A-2 days: pt with fall on R knee, xray shows partial tear of quadriceps tendon from the patella with sm avulsion injury , PMHX afib- on Pradaza) DM, JAIME, morbid obesity, HTN, HLD, Vit D def. Glaucoma , L quadriceps tendon tear and R lateral malleolus fx (2018) anticipate > 2 MN ongoing med nec care- pt will need to come off Pradaxa prior to sgy. ortho consult pend. diuresis needed prior to sgy.
[2018-07-17] MEDS: traMADol 50 MG TAB PO PRN ×2 (17:14→23:10)
[2018-07-17] MEDS: INSULIN LISPRO 100 UNIT/ML SC SCH (17:15)
--- NOTE | 2018-07-17 19:01 | GCON ---
[f rep st] CONSULTATION DATE OF CONSULTATION: 07/17/2018 REASON FOR CONSULTATION: Right knee injury. HISTORY OF PRESENT ILLNESS: The patient is a 62-year-old who sustained a fall on the day of admissio n resulting in right knee pain and difficulty ambulating. He has a history of a left quadriceps tend on tear which previously underwent operative repair approximately 6 months ago. PHYSICAL EXAMINATION: There is diffuse swelling in his knee with greater swelling and tenderness ant eriorly. He has a palpable defect superior to his patella with inferior (baja) positioning of his pa tella clinically. He has difficulty firing his quadriceps mechanism. IMAGING: Radiographs show evidence of an avulsion-type fracture of the superior pole of the patella. ASSESSMENT: Right quadriceps tendon rupture. PLAN: It is recommended that operative repair resulting in right quad tendon repair be pursued. Thi s will be performed tomorrow. /[id number]/MODL
[2018-07-17] MEDS: amLODIPine BESYLATE 5 MG TAB PO SCH (20:51)
[2018-07-17] MEDS: DORZOLAMIDE/TIMOLOL 10 ML OPHT.BTL EACHEYE SCH (20:54)
[2018-07-17] MEDS: Latanoprostene Bunod [Vyzulta] 1 DROP EACHEYE SCH (20:54)
[2018-07-17] MEDS ORDERED: HEPARIN 5,000 UNIT/0.5 ML INJ SC SCH (21:00)
[2018-07-18 05:13] LABS: PLATELET COUNT 174 10^3/uL (150-400)
[2018-07-18] MEDS: ACETAMINOPHEN 325 MG TAB PO PRN (07:52)
[2018-07-18] MEDS: traMADol 50 MG TAB PO PRN ×2 (07:52→19:57)
[2018-07-18] MEDS: INSULIN LISPRO 100 UNIT/ML SC SCH ×3 (08:32→18:38)
[2018-07-18] MEDS: CHOLECALCIFEROL VIT D3 2,000 UNITS TAB/CAP PO SCH (08:35)
[2018-07-18] MEDS: ATORVASTATIN CALCIUM 20 MG TAB PO SCH (08:35)
[2018-07-18] MEDS: CALCIUM CARBONATE 500 MG CHEWABLE TAB PO SCH ×2 (08:36→20:00)
[2018-07-18] MEDS: METOPROLOL SUCCINATE XR 50 MG TAB PO SCH ×2 (08:36→20:00)
[2018-07-18] MEDS ORDERED: BUPIVACAINE/EPI 0.5% 30 ML SDV ONE (13:12)
[2018-07-18] MEDS ORDERED: LIDOCAINE 2% 5 ML SDV ONE ×3 (13:15→16:29)
[2018-07-18] MEDS ORDERED: DEXAMETHASONE 4 MG/ML VIAL ONE (13:15)
[2018-07-18] MEDS ORDERED: ONDANSETRON 4 MG/2 ML VIAL ONE ×2 (13:15→16:12)
[2018-07-18] MEDS ORDERED: PROPOFOL 200 MG/20 ML VIAL ONE ×3 (13:16→16:32)
[2018-07-18] MEDS ORDERED: fentaNYL 100 MCG/2 ML INJ ONE ×2 (13:16→17:40)
[2018-07-18] MEDS ORDERED: ROPIVACAINE HCL 150 MG/30 ML INJ ONE (13:22)
[2018-07-18] MEDS: DORZOLAMIDE/TIMOLOL 10 ML OPHT.BTL EACHEYE SCH ×2 (14:42→20:01)
[2018-07-18] MEDS ORDERED: ceFAZolin 2 GM/DEXTROSE 100 ML IV ONE (15:25)
--- NOTE | 2018-07-18 15:28 | POSTOPPROG ---
Post Op Note Date of Operation: 07/18/18 Surgeon: Cal Lucia Anesthesia: GET(General Endotracheal) Pre-op Diagnosis: Right quadrioceps tear Post-op Diagnosis: same Procedure: R Quad tendon repair Inf/Abcess present in the surg proc area at time of surgery?: No EBL: 50-100
[2018-07-18] MEDS ORDERED: ceFAZolin 3 GM in D5W 100 ML IV ONE (15:30)
[2018-07-18] MEDS ORDERED: D5W 1/2 NS W/ 20 KCl/L 1,000 ML IV SCH (15:30)
--- NOTE | 2018-07-18 16:02 | HOSPPROG ---
Hospitalist Progress Note Assessment/Plan: 62 year old male with pmh of left quadriceps rupture, here for left knee pain, concerning for right quad tear. Right knee pain- I reviewed the plain film which is concerning for a partial tear. I discussed the case his ortho surgeon who has graciously agreed to see the patient. No plan for surgery today. -Pain control -Ortho to take to OR today PAF- on pradaxa and asa. on hold for surgery today. giving lopressor 50 bid, some elevated rates today when he got agitated. if needed PRN iv lopressor. JAIME- CPAP DM- hold glucophage and sulfonylurea, and cover with SSI HTN- cont metoprolol, and norvasc, hold ARB/HCTZ perioperatively HLD- cont statin PPX- SCDs, heparin FLuids- PO Lytes- WNL Nutrition- carb control Dispo- inpatient for surgery for tendon rupture Subjective: having a substantial amount of pain in leg. anxious about work. denied any chest pain or ot her symptoms. Objective: Vital Signs Temp Pulse Resp BP Pulse Ox 36.5 C 108 H 18 143/99 H 2 L 07/18/18 14:24 07/18/18 14:24 07/18/18 14:24 07/18/18 14:24 07/18/18 14:24 Laboratory Results 07/18/18 04:46 07/18/18 04:46 07/17/18 07/18/18 07/19/18 05:59 05:59 05:59 Intake Total 50 1900 Output Total 950 2050 Balance -900 -150 PT 13.6 SEC (12.0-15.0) 07/16/18 20:10 INR 1.08 (0.83-1.16) 07/16/18 20:10 - Physical Exam Constitutional: no apparent distress, appears nourished, not in pain Eyes: PERRL, anicteric sclera, EOMI Ears, Nose, Mouth, Throat: moist mucous membranes, hearing normal, ears appear normal, no oral mucosal ulcers Cardiovascular: regular rate and rhythym, no murmur, rub, or gallop, irregularly irregular Respiratory: no respiratory distress, no rales or rhonchi, clear to auscultation Gastrointestinal: normoactive bowel sounds, soft, non-tender abdomen, no palpable masses Genitourinary: no bladder fullness, no bladder tenderness, no renal bruits Skin: no rashes or abrasions, no fluctuance, no induration Musculoskeletal: full muscle strength, no muscle tenderness, normal joint ROM Neurologic: AAOx3, sensation intact bilaterally Psychiatric: interacting appropriately, not anxious, not encephalopathic, thought process linear Lymph, Heme, Immunologic: no cervical LAD, no supraclavicular LAD ICD10 Worksheet Patient Problems: Problems Problem Status Onset Quadriceps tendon rupture Acute
--- NOTE | 2018-07-18 16:06 | PDANEPAE ---
ANE Past Medical History - Cardiovascular History Hx Hypertension: Yes Hx Arrhythmias: Yes Hx Chest Pain: No Hx Coronary Artery / Peripheral Vascular Disease: No Hx CHF / Valvular Disease: No Hx Palpitations: Yes Cardiovascular History Comment: Hx of Afib - Pulmonary History Hx COPD: No Hx Asthma/Reactive Airway Disease: No Hx Recent Upper Respiratory Infection: No Hx Oxygen in Use at Home: Yes O2 in Use at Home (L/minute): 2 Hx Sleep Apnea: Yes Sleep Apnea Screening Result - Last Documented: Positive Pulmonary History Comment: Does not use O2 and is not sure how many liters he's supposed to use - Neurologic History Hx Cerebrovascular Accident: No Hx Seizures: No Hx Dementia: No - Endocrine History Hx Diabetes: Yes Obesity: severe - Renal History Hx Renal Disorders: No - Liver History Hx Hepatic Disorders: No - Neurological & Psychiatric Hx Hx Neurological and Psychiatric Disorders: No - Cancer History Hx Cancer: No - Congenital Disorder History Hx Congenital Disorders: No - GI History GERD: no Hx Gastrointestinal Disorders: No - Other Health History Other Health History: wears glasses. glaucoma - Chronic Pain History Chronic Pain: No - Surgical History Prior Surgeries: rectal cyst removal. tonsillectomy ANE Review of Systems Review of Systems: ANE Patient History - Allergies Allergies/Adverse Reactions: No Known Allergies Allergy (Verified 07/16/18 15:25) - Home Medications Home medications: home medication list seen and reviewed Home Medications: Aspirin [Aspirin 81mg (*)] 81 mg PO DAILY 02/19/14 [Last Taken 07/16/18] Atorvastatin Calcium [Lipitor 20 mg (*)] 20 mg PO DAILY 02/19/14 [Last Taken ] Dabigatran Etexilate Mesyl [Pradaxa 150 MG (*)] 150 mg PO BID 02/19/14 [Last Taken 07/16/18 09:00] Metformin HCl [Metformin 1000 mg] 1,000 mg PO BIDMEAL 02/19/14 [Last Taken 07/16 09:00] Metoprolol Succinate 50 mg PO BID 02/19/14 [Last Taken 07/16/18 09:00] Irbesartan/Hydrochlorothiazide [Irbesartan-Hctz 150-12.5 mg Tb] 2 each PO DAILY 12/13/17 [Last Taken 07/16/18] Latanoprostene Bunod [Vyzulta] 1 drop EACHEYE HS 12/13/17 [Last Taken 07/15/18] glipiZIDE [Glipizide] 5 mg PO DAILY 12/13/17 [Last Taken 07/16/18] amLODIPine BESYLATE [Norvasc 5 mg (*)] 5 mg PO HS 07/16/18 [Last Taken 07/15/18] Dorzolamide/Timolol [Cosopt (*)] 1 drop EACHEYE BID 07/17/18 [Last Taken 08:00] - NPO status NPO Status: no food or drink >8 hours NPO Since - Liquids (Date): 07/17/18 NPO Since - Liquids (Time): 00:01 NPO Since - Solids (Date): 07/17/18 NPO Since - Solids (Time): 00:01 - Anes Hx Anes Hx: no prior problems - Smoking Hx Smoking Status: Never smoked - Family Anes Hx Family Hx Anesthesia Complications: none ANE Labs/Vital Signs - Labs Result Diagrams: 07/18/18 04:46 07/18/18 04:46 - Vital Signs Blood Pressure: 143/99 Heart Rate: 108 Respiratory Rate: 18 O2 Sat (%): 2 Height: 180.34 cm Weight: 127.913 kg ANE Physical Exam - Airway Neck exam: FROM Mallampati Score: Class 3 Mouth exam: normal dental/mouth exam - Pulmonary Pulmonary: no respiratory distress, reduced air movement - Cardiovascular Cardiovascular: regular rate and rhythym, no murmur, rub, or gallop - ASA Status ASA Status: III ANE Anesthesia Plan Anesthesia Plan: GA w LMA
[2018-07-18] MEDS ORDERED: ONDANSETRON 4 MG/2 ML VIAL IVP PRN (16:37)
[2018-07-18] MEDS ORDERED: LR 500 ML IV PRN (16:37)
[2018-07-18] MEDS ORDERED: PROMETHAZINE HCL 25 MG/ML INJ IVP PRN (16:37)
[2018-07-18] MEDS ORDERED: ACETAMINOPHEN 500 MG TAB PO PRN (16:37)
[2018-07-18] MEDS ORDERED: NALOXONE HCL 0.4 MG/ML INJ IVP PRN (16:37)
[2018-07-18] MEDS ORDERED: LABETALOL HCL 5 MG/ML 20 ML MDV IVP PRN (16:37)
[2018-07-18] MEDS ORDERED: HYDROCODONE/APAP 5/325 TAB PO PRN (16:37)
[2018-07-18] MEDS ORDERED: fentaNYL 100 MCG/2 ML INJ IVP PRN (16:37)
[2018-07-18] MEDS: amLODIPine BESYLATE 5 MG TAB PO SCH (20:00)
[2018-07-18] MEDS: Latanoprostene Bunod [Vyzulta] 1 DROP EACHEYE SCH (20:01)
[2018-07-18] MEDS: MELATONIN 3 MG TAB PO SCH (20:06)
[2018-07-19] MEDS: ceFAZolin 2 GM/DEXTROSE 100 ML IV SCH ×3 (00:30→09:00)
[2018-07-19] MEDS: ACETAMINOPHEN 325 MG TAB PO PRN (00:30)
[2018-07-19] MEDS ORDERED: oxyCODONE IR 5 MG TAB PO PRN (00:58)
[2018-07-19] MEDS: traMADol 50 MG TAB PO PRN ×3 (05:25→20:24)
--- NOTE | 2018-07-19 06:16 | SOAPPROG ---
SOAP Progress Note Assessment/Plan: Assessment: Plan: 07/19/18 06:14 S/P R quad tendon repair Pain tolerable OOB x 1 Brittney po Dressing intact LOUIS 30ml Distal NVI OOB/PT Home vs SNF based on ability to safely manage at home Objective: Vital Signs Temp Pulse Resp BP Pulse Ox 36.9 C 103 H 16 122/93 H 96 07/19/18 04:00 07/19/18 04:00 07/19/18 04:00 07/19/18 04:00 07/19/18 04:00 Laboratory Results 07/18/18 04:46 07/18/18 04:46 07/18/18 07/19/18 07/20/18 05:59 05:59 05:59 Intake Total 1900 750 Output Total 2050 730 Balance -150 20 PT 13.6 SEC (12.0-15.0) 07/16/18 20:10 INR 1.08 (0.83-1.16) 07/16/18 20:10 ICD10 Worksheet Patient Problems: Problems Problem Status Onset Quadriceps tendon rupture Acute
[2018-07-19] MEDS: CALCIUM CARBONATE 500 MG CHEWABLE TAB PO SCH ×2 (08:25→20:30)
[2018-07-19] MEDS: ATORVASTATIN CALCIUM 20 MG TAB PO SCH (08:25)
[2018-07-19] MEDS: CHOLECALCIFEROL VIT D3 2,000 UNITS TAB/CAP PO SCH (08:25)
[2018-07-19] MEDS: METOPROLOL SUCCINATE XR 50 MG TAB PO SCH ×2 (08:25→20:30)
[2018-07-19] MEDS: DORZOLAMIDE/TIMOLOL 10 ML OPHT.BTL EACHEYE SCH ×2 (09:04→20:26)
--- NOTE | 2018-07-19 09:27 | GOP ---
[f rep st] OPERATIVE REPORT DATE OF OPERATION: 07/18/2018 SURGEON: Cal Lucia MD ANESTHESIA: General. PREOPERATIVE DIAGNOSIS: Right quadriceps tendon rupture. POSTOPERATIVE DIAGNOSIS: Right quadriceps tendon rupture. PROCEDURE PERFORMED: Open repair right quadriceps tendon rupture. FINDINGS: ESTIMATED BLOOD LOSS: Minimal. INDICATIONS: The patient is a 62-year-old who incidentally had undergone open repair of a left quadr iceps tendon rupture 6 months ago, who presented with an acute right quadriceps tendon rupture. Base d on the nature of his injury, it was recommended that operative treatment consisting of open repair be pursued. The patient acknowledged he understood the potential risks of the operation including, b ut not limited to bleeding, infection, neurovascular damage leading to loss of limb function, pain, m uscle weakness or limitations despite operative treatment and anesthetic risks. He acknowledged he u nderstood the potential risks, planned procedure, postoperative plan well. His questions were answer ed prior to surgery. He gave his consent for the operative procedure. DESCRIPTION OF PROCEDURE: Patient brought to the operating after IV antibiotics were administered in preop holding. He was placed in a supine position where general anesthetic was administered. A ko rniquet was placed on his right thigh, a bump underneath the right hip and shoulder and his right low er extremity was prepped and draped in standard sterile fashion. After marking the incision and grav ity exsanguination, tourniquet was inflated to 275. A longitudinal incision was made along the anter ior aspect of the knee. Skin and subcutaneous tissue were sharply incised. Sharp dissection was car ried down to the retinaculum overlying the patellar tendon. The retinaculum was reflected medially a nd laterally. Complete disruption at the patellar insertion was identified. Three Q-FIX suture anch ors were placed in the superior pole of the patella. Each of the double suture strands was brought t hrough the quadriceps tendon utilizing a modified Desai stitch and secured under appropriate tensio n giving a 3 row suture fixation. He was taken to flexion of approximately 60 degrees and the repair was found to be stable. The anterior insertion of the tendon which was still intact on the patella was then secured into the main aspect of the quadriceps tendon at multiple points with 0 Vicryl sutur e. Attention was directed towards closure. A small Joel-Fernández drain was initially placed. The retin aculum was closed with 2-0 Vicryl suture in interrupted fashion. Subcutaneous tissue closed with 3-0 Vicryl suture in interrupted fashion. The skin closed with skin arnol. 0.5% Marcaine without epi nephrine was injected in the wound site. The wounds were dressed with sterile Adaptic, 4 x 4, Kerlix , and Tito wrap. The patient was placed in a knee immobilizer and taken to the recovery room, extubat ed in stable condition postoperatively. All sponge, needle, and instrument counts were reported as b eing correct. DRAINS: A small Joel-Fernández. COMPLICATIONS: None. PLAN: The patient will be admitted for medical management and gait training. He will be weightbeari ng as tolerated in his knee immobilizer. /[id number]/MODL
[2018-07-19 09:34] LABS: PLATELET COUNT 182 10^3/uL (150-400)
[2018-07-19] MEDS: INSULIN LISPRO 100 UNIT/ML SC SCH ×3 (10:27→18:16)
--- NOTE | 2018-07-19 15:00 | ASMTCMCOM ---
CM Note CM Note Notes: Spoke with patient regarding PT recommendation for SNF rehab at discharge. The patient went to [facility] 1 year ago when he had surgery and his insurance does not cover their contracted doctors and nurses so he does not want to return there. He also states his insurance did not cover [facility] a year ago but he would like to see if they take his insurance now. He would like something close to his home in [place] if possible. He also requested CM talk to his , Chante. Chante states she would like referrals to go out to [facility], [facility], and [facility]. Chante did not want to go to [facility]. Referrals were sent [facility]. We are waiting their response. CM will follow. Date Signed: 07/19/2018 03:00 PM Electronically Signed By:Giana Haro LCSW
--- NOTE | 2018-07-19 16:55 | HOSPPROG ---
Hospitalist Progress Note Assessment/Plan: 62 year old male with pmh of left quadriceps rupture, here for left knee pain, concerning for right quad tear. Right knee pain- post op day 1 status post repair of right quad tendon rupture. -Pain control -PT/OT -ortho PAF- on pradaxa and asa. on hold for surgery today. giving lopressor 50 bid, some elevated rates today when he got agitated. if needed PRN iv lopressor. -discuss restarting pradaxa and asa JAIME- CPAP DM- hold glucophage and sulfonylurea, and cover with SSI HTN- cont metoprolol, and norvasc, hold ARB/HCTZ perioperatively HLD- cont statin PPX- SCDs, start lovenox 40 FLuids- PO Lytes- WNL Nutrition- carb control Dispo- inpatient for surgery for tendon rupture Subjective: pain actually better post op. no other complaints. Objective: Vital Signs Temp Pulse Resp BP Pulse Ox 36.9 C 119 H 18 148/95 H 90 L 07/19/18 15:06 07/19/18 15:06 07/19/18 15:06 07/19/18 15:06 07/19/18 15:06 Laboratory Results 07/19/18 09:27 07/19/18 09:27 07/18/18 07/19/18 07/20/18 05:59 05:59 05:59 Intake Total 1900 1200 Output Total 2050 730 395 Balance -150 470 -395 PT 13.6 SEC (12.0-15.0) 07/16/18 20:10 INR 1.08 (0.83-1.16) 07/16/18 20:10 - Physical Exam Constitutional: no apparent distress, appears nourished, not in pain Eyes: PERRL, anicteric sclera, EOMI Ears, Nose, Mouth, Throat: moist mucous membranes, hearing normal, ears appear normal, no oral mucosal ulcers Cardiovascular: regular rate and rhythym, no murmur, rub, or gallop Respiratory: no respiratory distress, no rales or rhonchi, clear to auscultation Gastrointestinal: normoactive bowel sounds, soft, non-tender abdomen, no palpable masses Genitourinary: no bladder fullness, no bladder tenderness, no renal bruits Skin: no rashes or abrasions, no fluctuance, no induration Musculoskeletal: full muscle strength, no muscle tenderness, normal joint ROM Neurologic: AAOx3, sensation intact bilaterally Psychiatric: interacting appropriately, not anxious, not encephalopathic, thought process linear Lymph, Heme, Immunologic: no cervical LAD, no supraclavicular LAD ICD10 Worksheet Patient Problems: Problems Problem Status Onset Quadriceps tendon rupture Acute
[2018-07-19] MEDS: ENOXAPARIN 40 MG/0.4 ML SYR SC SCH (18:20)
[2018-07-19] MEDS: Latanoprostene Bunod [Vyzulta] 1 DROP EACHEYE SCH (20:26)
[2018-07-19] MEDS: amLODIPine BESYLATE 5 MG TAB PO SCH (20:30)
[2018-07-19] MEDS: MELATONIN 3 MG TAB PO SCH (20:30)
[2018-07-20] MEDS: traMADol 50 MG TAB PO PRN ×4 (02:37→23:28)
[2018-07-20 05:51] LABS: PLATELET COUNT 147 10^3/uL (150-400)
--- NOTE | 2018-07-20 07:18 | SOAPPROG ---
SOAP Progress Note Assessment/Plan: Assessment: Plan: 07/19/18 06:14 S/P R quad tendon repair Pain tolerable OOB x 1 Brittney po Dressing intact LOUIS 30ml Distal NVI OOB/PT Home vs SNF based on ability to safely manage at home 07/20/18 07:17 Slow with ambulation Pain tolerable Dressing intact, drain D/Kenneth [place] Unchanged OOB/PT Probable SNF transfer Objective: Vital Signs Temp Pulse Resp BP Pulse Ox 36.8 C 107 H 16 156/86 H 96 07/20/18 04:00 07/20/18 04:00 07/20/18 04:00 07/20/18 04:00 07/20/18 04:00 Laboratory Results 07/20/18 05:40 07/19/18 09:27 07/19/18 07/20/18 07/21/18 05:59 05:59 05:59 Intake Total 1200 750 Output Total 730 650 Balance 470 100 PT 13.6 SEC (12.0-15.0) 07/16/18 20:10 INR 1.08 (0.83-1.16) 07/16/18 20:10 ICD10 Worksheet Patient Problems: Problems Problem Status Onset Quadriceps tendon rupture Acute
[2018-07-20] MEDS: INSULIN LISPRO 100 UNIT/ML SC SCH ×3 (08:12→17:41)
[2018-07-20] MEDS: METOPROLOL SUCCINATE XR 50 MG TAB PO SCH ×2 (09:32→21:34)
[2018-07-20] MEDS: CHOLECALCIFEROL VIT D3 2,000 UNITS TAB/CAP PO SCH (09:32)
[2018-07-20] MEDS: CALCIUM CARBONATE 500 MG CHEWABLE TAB PO SCH ×2 (09:32→21:33)
[2018-07-20] MEDS: ATORVASTATIN CALCIUM 20 MG TAB PO SCH (09:33)
[2018-07-20] MEDS: ASPIRIN 81 MG CHEWABLE TAB PO SCH (09:33)
[2018-07-20] MEDS: DORZOLAMIDE/TIMOLOL 10 ML OPHT.BTL EACHEYE SCH ×2 (09:34→21:33)
[2018-07-20] MEDS: ENOXAPARIN 40 MG/0.4 ML SYR SC SCH (09:37)
[2018-07-20] MEDS ORDERED: POLYETHYLENE GLYCOL 3350 17 GM PKT PO ONE (10:12)
--- NOTE | 2018-07-20 16:16 | ASMTCMCOM ---
CM Note CM Note Notes: [facility] and [facility] are unable to accept his insurance. CM called pts insurance and spoke to Shaneka. Shaneka gave CM a list of facilities that take his insurance. CM spoke to pt and his . would like to try [facility]. [facility] is able to get auth, however they need to check network adequacy provision (to see if their doctors are in network w/ pts insurance). The last time pt was at [facility], their doctors were not in network w/ pts insurance and pt was left with a very large bill. CM communicated w/ pt and the latest update. CM to follow. Date Signed: 07/20/2018 04:16 PM Electronically Signed By:TISHA Pérez
--- NOTE | 2018-07-20 17:02 | HOSPPROG ---
Hospitalist Progress Note Assessment/Plan: 62 year old male with pmh of left quadriceps rupture, here for left knee pain, concerning for right quad tear. Right knee pain- post op day 1 status post repair of right quad tendon rupture. -Pain control -PT/OT -ortho has cleared for discharge and has also cleared restarting home pradaxa from their view. PAF- on pradaxa and asa. on hold for surgery today. giving lopressor 50 bid, some elevated rates today when he got agitated. if needed PRN iv lopressor. -pradaxa restarted. JAIME- CPAP DM- hold glucophage and sulfonylurea, and cover with SSI HTN- cont metoprolol, and norvasc, hold ARB/HCTZ perioperatively HLD- cont statin PPX- SCDs, start lovenox 40 FLuids- PO Lytes- WNL Nutrition- carb control Dispo- inpatient for surgery for tendon rupture Subjective: still very weak and with pain in leg. Objective: Vital Signs Temp Pulse Resp BP Pulse Ox 36.7 C 106 H 20 137/85 H 90 L 07/20/18 16:00 07/20/18 16:00 07/20/18 16:00 07/20/18 16:00 07/20/18 16:00 Laboratory Results 07/20/18 05:40 07/19/18 09:27 07/19/18 07/20/18 07/21/18 05:59 05:59 05:59 Intake Total 8303 513 9050 Output Total 730 650 700 Balance 470 100 500 PT 13.6 SEC (12.0-15.0) 07/16/18 20:10 INR 1.08 (0.83-1.16) 07/16/18 20:10 - Physical Exam Constitutional: no apparent distress, appears nourished, not in pain Eyes: PERRL, anicteric sclera, EOMI Ears, Nose, Mouth, Throat: moist mucous membranes, hearing normal, ears appear normal, no oral mucosal ulcers Cardiovascular: no murmur, rub, or gallop, irregularly irregular Respiratory: no respiratory distress, no rales or rhonchi, clear to auscultation Gastrointestinal: normoactive bowel sounds, soft, non-tender abdomen, no palpable masses Genitourinary: no bladder fullness, no bladder tenderness, no renal bruits Skin: no rashes or abrasions, no fluctuance, no induration Musculoskeletal: full muscle strength, no muscle tenderness, normal joint ROM Neurologic: AAOx3, sensation intact bilaterally Psychiatric: interacting appropriately, not anxious, not encephalopathic, thought process linear Lymph, Heme, Immunologic: no cervical LAD, no supraclavicular LAD ICD10 Worksheet Patient Problems: Problems Problem Status Onset Quadriceps tendon rupture Acute
[2018-07-20] MEDS: Latanoprostene Bunod [Vyzulta] 1 DROP EACHEYE SCH (21:32)
[2018-07-20] MEDS: amLODIPine BESYLATE 5 MG TAB PO SCH (21:33)
[2018-07-20] MEDS: DABIGATRAN ETEXILATE MESYL 150 MG CAP PO SCH (21:33)
[2018-07-20] MEDS: MELATONIN 3 MG TAB PO SCH (21:34)
--- NOTE | 2018-07-21 06:00 | PDIAF ---
- Diagnosis Code Status: Full Code - Medication Management Discharge Medications: electronically signed and located in the Home Medication List. - Orders Diet Recommendation: no restrictions on diet Diet Texture: Regular Texture Diet Wound Care Instructions: Keep dressing clean, dry, intact Activity/Weight Bearing Restrictions: Weight bear as tolerated in knee immobilizer. Knee immobilizer at all times Additional Instructions: Follow up with Uri PEREZ 07/26/18. Call [phone] for appt - Follow Up Care Current Providers and Referrals: Patient,NotPresent [Unknown] - As per Instructions
--- NOTE | 2018-07-21 06:01 | SOAPPROG ---
SOAP Progress Note Assessment/Plan: Assessment: Plan: 07/19/18 06:14 S/P R quad tendon repair Pain tolerable OOB x 1 Leland po Dressing intact LOUIS 30ml Distal NVI OOB/PT Home vs SNF based on ability to safely manage at home 07/20/18 07:17 Slow with ambulation Pain tolerable Dressing intact, drain D/Kenneth [place] Unchanged OOB/PT Probable SNF transfer 07/21/18 06:00 Slow progress with ambulation. Pain OK leland po Dressing intact, no D/C OK for SNF transfer Objective: Vital Signs Temp Pulse Resp BP Pulse Ox 37.0 C 92 15 130/95 H 92 07/21/18 00:00 07/21/18 00:00 07/21/18 00:00 07/21/18 00:00 07/21/18 00:00 Laboratory Results 07/20/18 05:40 07/19/18 09:27 07/20/18 07/21/18 07/22/18 05:59 05:59 05:59 Intake Total 750 1200 Output Total 650 700 Balance 100 500 PT 13.6 SEC (12.0-15.0) 07/16/18 20:10 INR 1.08 (0.83-1.16) 07/16/18 20:10 ICD10 Worksheet Patient Problems: Problems Problem Status Onset Quadriceps tendon rupture Acute
[2018-07-21 07:42] VITALS: BP 138/85
[2018-07-21] MEDS ORDERED: POLYETHYLENE GLYCOL 3350 17 GM PKT PO SCH (09:00)
[2018-07-21] MEDS: traMADol 50 MG TAB PO PRN (09:03)
[2018-07-21] MEDS: ATORVASTATIN CALCIUM 20 MG TAB PO SCH (09:07)
[2018-07-21] MEDS: DORZOLAMIDE/TIMOLOL 10 ML OPHT.BTL EACHEYE SCH (09:08)
[2018-07-21] MEDS: DABIGATRAN ETEXILATE MESYL 150 MG CAP PO SCH (09:08)
[2018-07-21] MEDS: CHOLECALCIFEROL VIT D3 2,000 UNITS TAB/CAP PO SCH (09:09)
[2018-07-21] MEDS: ASPIRIN 81 MG CHEWABLE TAB PO SCH (09:09)
[2018-07-21] MEDS: METOPROLOL SUCCINATE XR 50 MG TAB PO SCH (09:10)
[2018-07-21] MEDS: INSULIN LISPRO 100 UNIT/ML SC SCH (09:10)
[2018-07-21] MEDS: CALCIUM CARBONATE 500 MG CHEWABLE TAB PO SCH (09:13)
--- NOTE | 2018-07-21 10:13 | PDIAF ---
- Diagnosis Code Status: Full Code - Medication Management Half-Way Antibiotics: n/a Discharge Medications: electronically signed and located in the Home Medication List. PICC Care - Routine: N/A - Orders Services needed: Physical Therapy, Occupational Therapy Home Care Face to Face: today, Mary Anne Edmond MD Isolation Type: None Diet Recommendation: ADA 2000 consistent carb Diet Texture: Regular Texture Diet Weigh Patient: weekly Cano: Not applicable Wound Care Instructions: Keep dressing clean, dry, intact Activity/Weight Bearing Restrictions: Weight bear as tolerated in knee immobilizer. Knee immobilizer at all times Additional Instructions: Follow up with Uri PEREZ 07/26/18. Call [phone] for appt Please schedule with Pulmonary/Sleep specialists as missed appts and needs CPAP mask refit - Labs/Radiology BMP Date: 07/24/18 Other Lab Name, Date and Time: 07/24/2018 [id number] - Follow Up Care Current Providers and Referrals: Anastasiya Jara MD [Primary Care Provider] - 3 days of d/c SNF/Rehab
--- NOTE | 2018-07-21 10:21 | ASMTLACE ---
LACE Length of stay for Answers: 4-6 days current admission Acuity / Level of Answers: Yes Care: Did the patient have an inpatient admission? Comorbidities - select Answers: Diabetes (uncontrolled or all that apply controlled) Other Notes: AFib; HTN; HLD # of Emergency department Answers: 1-2 visits in the last 6 months Score: 10 Date Signed: 07/21/2018 10:20 AM Electronically Signed By:TISHA Pérez
--- NOTE | 2018-07-21 10:47 | ASDISCHSUM ---
Discharge Information Plan Status:SNF Medically Cleared to Leave:07/21/2018 Discharge Date:07/21/2018 10:41 AM CM D/C Disposition: ADT D/C Disposition:[facility] Facility Projected Discharge Date:07/21/2018 11:00 AM Transportation at D/C: Discharge Delay Reason: Follow-Up Date:07/21/2018 11:00 AM Discharge Slot: Final Diagnosis: Placement Information Referral Type:*Correction/SNF Referral ID:[id number] Provider Name:[facility] Address 1:[address] Address 2: City:[place] Selection Factors: State:[place] Patient Contact Information Contact Name:DANI Relationship: Address:[address] City:[place] Alternate Phone: State/Zip Code:[place] [address] Email: Financial Information Financial Class:Impulsonic Primary Plan Desc:TEMI CASIANO Primary Plan Number:[id number] Secondary Plan Desc: Secondary Plan Number: Assessment Information LACE LACE Length of stay for Answers: 4-6 days current admission Acuity / Level of Answers: Yes Care: Did the patient have an inpatient admission? Comorbidities - select Answers: Diabetes (uncontrolled or all that apply controlled) Other Notes: AFib; HTN; HLD # of Emergency department Answers: 1-2 visits in the last 6 months Score: 10 Date Signed: 07/21/2018 10:20 AM Electronically Signed By:TISHA Pérez [facility] Initial CM Assessment Living Arrangements What is your living Answers: With Spouse arrangement? Who do you live with? Type Of Residence What kind of residence do Answers: House you live in? Discharge Plan Comments Coordination Status Comments Notes: Patient is a 62yo male who comes to [facility] as a result of an acute right knee injury which will require surgery. PT/OT evals have been ordered for the patient. D/C plan TBD. CM will follow. Date Signed: 07/17/2018 10:02 AM Electronically Signed By:Giana Haro LCSW [facility] CM Progress Note CM Note CM Note Notes: Spoke with patient regarding PT recommendation for SNF rehab at discharge. The patient went to [facility] 1 year ago when he had surgery and his insurance does not cover their contracted doctors and nurses so he does not want to return there. He also states his insurance did not cover [facility] a year ago but he would like to see if they take his insurance now. He would like something close to his home in [place] if possible. He also requested CM talk to his , Chante. Chante states she would like referrals to go out to [facility], [facility], and [facility]. Chante did not want to go to [facility]. Referrals were sent [facility]. We are waiting their response. CM will follow. Date Signed: 07/19/2018 03:00 PM Electronically Signed By:Giana Haro LCSW [facility] CM Progress Note CM Note BRAXTON Note Notes: [facility] and [facility] are unable to accept his insurance. CM called pts insurance and spoke to Shaneka. Shaneka gave CM a list of facilities that take his insurance. CM spoke to pt and his . would like to try [facility]. [facility] is able to get auth, however they need to check network adequacy provision (to see if their doctors are in network w/ pts insurance). The last time pt was at [facility], their doctors were not in network w/ pts insurance and pt was left with a very large bill. CM communicated w/ pt and the latest update. CM to follow. Date Signed: 07/20/2018 04:16 PM Electronically Signed By:TISHA Pérez Case Management Discharge Plan Note Case Management Discharge Discharge Order Complete? Answers: Yes Patient to Obtain Answers: Other Notes: [facility] SNF Medications Transportation Arranged Answers: Other Transport will Pick (Date 07/21/2018 10:30 AM & Time) ALEXEIALA Complete Answers: No Case Management Transport Answers: No Form Complete Faxed Final Orders Answers: Yes Agency/Facility Transfer Answers: Yes Report Printed & Faxed to Receiving Agency Family Notified Answers: Yes Discharge Comments Notes: Pts case discussed w/ Dr. Edmond. CM spoke to Constantine at [facility]. Constantine reported that it takes up to 5 business day to obtain network adequacy provisional approval. Constantine reports that pt will most likely be approved and it will be back dated to admission date to SNF. 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 CM met w/ pt and and communicated all of this to them. They are in agreement w/ discharge and feels comfortable w/ it. DC orders sent. Non triggering pasrr submitted to [facility]. BETHEL Trejo will call to give report. CM available for changes. Plan: [facility] Date Signed: 07/21/2018 10:46 AM Electronically Signed By:TISHA Pérez Intervention Information
--- NOTE | 2018-07-21 10:47 | ASMTDCNOTE ---
Case Management Discharge Discharge Order Complete? Answers: Yes Patient to Obtain Answers: Other Notes: [facility] Medications Transportation Arranged Answers: Other Transport will Pick (Date 07/21/2018 10:30 AM & Time) EMTALA Complete Answers: No Case Management Transport Answers: No Form Complete Faxed Final Orders Answers: Yes Agency/Facility Transfer Answers: Yes Report Printed & Faxed to Receiving Agency Family Notified Answers: Yes Discharge Comments Notes: Pts case discussed w/ Dr. Edmond. CM spoke to Constantine at [facility]. Constantine reported that it takes up to 5 business day to obtain network adequacy provisional approval. Constantine reports that pt will most likely be approved and it will be back dated to admission date to SNF[facility] told [facility] that if it doesn't get approved, [facility] will be responsible for paying for the doctor and INCINERATOR OPERATOR visits w/ pt. CM met w/ pt and and communicated all of this to them. They are in agreement w/ discharge and feels comfortable w/ it. DC orders sent. Non triggering pasrr submitted to [facility]. BETHEL Trejo will call to give report. CM available for changes. Plan: [facility] Date Signed: 07/21/2018 10:46 AM Electronically Signed By:TISHA Pérez
--- NOTE | 2018-07-21 12:59 | GDS ---
[f rep st] DISCHARGE SUMMARY SERVICE: [facility] Hospitalist. CONSULT: Orthopedics, Dr. Lucia. INITIAL H AND P: Please see previously entered note by Dr. Parisi. ADMISSION DIAGNOSES: 1. Acute knee injury with suspected quadriceps tendon rupture. 2. Right-sided congestive heart failure. 3. Paroxysmal atrial fibrillation. 4. Obstructive sleep apnea. 5. Type 2 diabetes. 6. Vitamin D deficiency. 7. Hypertension. 8. Hyperlipidemia. DISCHARGE DIAGNOSES: 1. quadriceps tendon tear, status post operative repair 07/19/[address] Lucia (please see operative note for details). 2. Right-sided congestive heart failure. 3. Paroxysmal atrial fibrillation. 4. Obstructive sleep apnea. 5. Type 2 diabetes. 6. Vitamin D deficiency. 7. Hypertension. 8. Hyperlipidemia. PROCEDURES: 1. On the day of admission, knee x-ray, which showed a quadriceps tendon tear, avulsion f racture fragment superior to the patella. 2. On 07/19/2018, quadriceps tendon rupture open repair, Dr. Lucia. HOSPITAL COURSE: The patient came into the emergency department today after falling and landing on h is knee. He had immediate pain and was unable to stand on it. He had an x-ray done, as d escribed above. He was admitted to the hospital for definitive treatment per orthopedic consultation . Dr. Lucia was asked to see him and recommended surgery. He is on chronic Pradaxa, which was held , and then he had definitive surgery on 07/19/2018. Postoperatively, blood pressure and blood sugar were monitored closely. He remained afebrile throughout his stay. He did require 2-3 L of O2 and kennedy s a known history of obstructive sleep apnea, but no chronic use of oxygen as an outpatient. This co uld be undiagnosed obesity hypoventilation syndrome versus from decreased ambulation from his surgery . This should be followed closely at [facility]. Blood pressures remained slightly elevated, but no additi onal treatments other than his home medications were needed. On the day of discharge, he has been wo rking with PT/OT, and Dr. Lucia was in agreement that he could be discharged to a custodial eric camacho for ongoing PT/OT therapy. Of note, he has chronic obstructive sleep apnea, as above, but has not been wearing his CPAP machine due to his mask not fitting well after his recent weight loss. He was scheduled to see his pulmonolo gist, but missed the appointment because of his admission to the hospital. I have asked that the SNF arrange for a Pulmonary/Sleep Medicine appointment if able during his stay there. It is okay to con tinue with O2 by nasal cannula instead at night and during the day if needed. Blood sugars have been below 200 during his stay, and his routine diabetic medications were held. Ho wever, these will be restarted at discharge, and I have asked SNF to draw a hemoglobin A1c next week. His last A1c was 6.0 in February of 2018. His primary care provider is Dr. Jara, and she has bee n managing his diabetes. I have encouraged him to continue with diabetic diet and ongoing weight los s and congratulated him on his weight loss today. DISCHARGE MEDICATIONS: Please see interagency form for full details, but in brief, he is to continue all of his home medications, Pradaxa, metoprolol, metformin, Lipitor, aspirin, glipizide, irbesartan /hydrochlorothiazide, Norvasc, and eye drops, and he has been written for vitamin D 2000 units a day, melatonin nightly, and pain medications as needed. DISCHARGE INSTRUCTIONS: He is to follow up with CHRIS Ayala, on 07/26/2018, at the orthopedic o [facility]. He should follow up with Dr. Anastasiya Jara, his primary care provider, 2-3 days after discha abi from [facility]. I have asked [facility] to arrange for a Pulmonary/Sleep Medicine appointment w chidie he is there, if possible. If not possible, he should do that as soon as possible after discharg eFrancisca /[id number]/MODL
== END 2018-07-21 10:41 | DRG 502 ==
LOC: EDUNIT# → F3N 19:19
PROVIDERS: ADMIT Internal Medicine; ATTEND Internal Medicine
PROC: 0LQL0ZZ Repair Right Upper Leg Tendon, Open Approach (ICD-10-PCS; principal; 2018-07-18 15:45)
DX: S76.111A Strain of right quadriceps muscle, fascia and tendon, initial encounter (principal); W18.39XA Other fall on same level, initial encounter; Y92.29 Other specified public building as the place of occurrence of the external cause; I48.0 Paroxysmal atrial fibrillation; E11.9 Type 2 diabetes mellitus without complications; G47.33 Obstructive sleep apnea (adult) (pediatric); E66.01 Morbid (severe) obesity due to excess calories; I11.0 Hypertensive heart disease with heart failure; I50.812 Chronic right heart failure; E78.5 Hyperlipidemia, unspecified; H40.9 Unspecified glaucoma; E55.9 Vitamin D deficiency, unspecified; Z80.2 Family history of malignant neoplasm of other respiratory and intrathoracic organs; Z79.01 Long term (current) use of anticoagulants
CPT/HCPCS: 97116-GP; 97161-GP; 97166-GO; 97530-GP; 97535-GO; C1713; J0690; J1100; J1650; J1815; J2270; J2405; J2704; J2795; J3010